=== PATIENT | male | born 1990 | race Caucasian/White ===

== ENCOUNTER 2019-01-11 09:07 | Emergency (ER) | payer SELFPAY ==
[2019-01-11 09:15] VITALS: BP 147/97
[2019-01-11] MEDS ORDERED: CEFTRIAXONE INJ 1000 MG VIAL IM ONE (09:30)
[2019-01-11] MEDS ORDERED: CLINDAMYCIN HCL 150 MG CAPSULE PO ONE (09:30)
[2019-01-11] MEDS ORDERED: LIDOCAINE 1% INJ-PF (10 MG/ML) 30 ML SDV NEB ONE (09:30)
[2019-01-11] MEDS ORDERED: TRAMADOL HCL 50 MG TABLET PO ONE (09:30)
--- NOTE | 2019-01-11 09:37 | ER Document Report ---
ED General - General Chief Complaint: Mouth Problem Stated Complaint: FACIAL SWELLING Time Seen by Provider: 01/11/19 09:21 Notes: 28-year-old male presents to the ER complaining of toothache and left facial swelling for the last 2 days. Patient describes pressure in his left lower jaw and swelling to his face is been progressing for the last 2 days his pain is moderate. Hurts to touch the area and open and close his jaw. He denies any p roblems swallowing. Denies any drooling. Denies fever or chills. He has not engaged in any effort to contact the dentist or any other outpatient provider. He denies any falls or trauma denies chest pain or shortness of breath. - Related Data Allergies/Adverse Reactions: No Known Allergies Allergy (Verified 01/11/19 09:30) Past Medical History - Social History Smoking Status: Current Every Day Smoker Frequency of alcohol use: None Drug Abuse: None Family History: None Patient has suicidal ideation: No Patient has homicidal ideation: No Review of Systems - Review of Systems Constitutional: denies: Chills, Fever EENT: Mouth pain, Dental problem. denies: Nose congestion, Nose discharge, Sinus pressure, Throat swelling, Mouth swelling, Vertigo Neurological/Psychological: denies: Headaches -: Yes All other systems reviewed and negative Physical Exam - Vital signs Vitals: Temp Pulse Resp BP Pulse Ox 98.6 F 65 16 147/97 H 97 01/11/19 09:14 01/11/19 09:14 01/11/19 09:14 01/11/19 09:14 01/11/19 09:14 - Notes Notes: GENERAL_APPEARANCE: well_nourished, alert, cooperative VITALS: reviewed, see vital signs table. HEAD: no_swelling\tenderness on the head. EYES: PERRL, EOMI, conjunctiva_clear. NOSE: no_nasal_discharge. MOUTH: Overall poor dentition. #18 tooth has caries. Redness around the gum in this area. No obvious fluctuance THROAT: no_tonsilar_inflammation, no_airway_obstruction. no_lymphadenopathy NECK: supple, no_neck_tenderness, (-)thyromegaly. EXTREMITIES: strength 5/5 in all_extremities, good pulses in all_extremities, no_swelling\tenderness in the extremities, no_edema. SKIN: warm, dry, good_color, no_rash. MENTAL_STATUS: speech_clear, oriented_X_3, normal_affect, responds_appropriately to questions. Course - Re-evaluation Re-evalutation: 01/11/19 09:34 28-year-old male presents with a dental abscess. Patient has no drooling or stridor. He is open his mouth without trismus. I am able to see his uvula. There is no asymmetry or anything to suggest throat abscess appears to be all along the angle the mandible. The floor of the mouth under the tongue is not significant swollen or anything to suggest Teo angina. The patient a dose of Rocephin here clindamycin for home we will give him a dose of Ultram. Motrin for home. Missael to follow-up with dentistry. - Vital Signs Vital signs: Temp Pulse Resp BP Pulse Ox 98.6 F 65 16 147/97 H 97 01/11/19 09:14 01/11/19 09:14 01/11/19 09:14 01/11/19 09:14 01/11/19 09:14 Discharge - Discharge Clinical Impression: Dental abscess Condition: Good Disposition: HOME, SELF-CARE Instructions: Dental Infection or Abscess ([facility]) Prescriptions: Clindamycin HCl [Cleocin 300 mg Capsule] 300 mg PO QID #30 capsule Ibuprofen [Ibu] 800 mg PO TID #30 tablet
== END 2019-01-11 09:47 | disposition home or self-care (01) ==
LOC: ER 09:07
DX: K04.7 Periapical abscess without sinus (principal); R22.0 Localized swelling, mass and lump, head; F17.200 Nicotine dependence, unspecified, uncomplicated
CPT/HCPCS: 99283; 96372; 96374; J3490; J0696